=== PATIENT | female | born 1945 | race Caucasian/White ===

== ENCOUNTER 2016-09-29 11:00 | Emergency (ER) | payer MEDICARE, BC, OTHER ==
[~2016-09-29 11:00] MED LIST: CLEOCIN HCL150 M1 PO; CLEOCIN HCL300 M1 PO; CULTURELLE1 EAC1 PO; DENTA 5000 PLUS51 GM DT; INVANZ1000 MG/VI IV; MUCINEX D ER 11 EACH PO; NAPROSYN500 M1 PO; NEXIUM40 M1 PO; NORCO 5-325 TA1 EACH PO; NORCO 7.5-3251 EACH PO; PERCOCET 5-3251 EACH PO; PERIDEX118 ML MM; PLAQUENIL200 M1 PO; PREDNISONE10 M1 PO; TYLENOL325 M2 PO; ULTRAM50 M1 PO; ZOLOFT100 M1 PO; ZOLOFT25 M1 PO; [UNRECOGNIZED DRUG - REMARK]
[2016-09-29] MEDS ORDERED: NORVASC5 M2 PO (11:23)
[2016-09-29] MEDS ORDERED: BACTRIM DS TAB1 EAC2 PO (11:23)
== END 2016-09-29 13:20 ==
LOC: EDMED 11:00
PROC: 2W3DX1Z Immobilization of Left Lower Arm using Splint (ICD-10-PCS; principal; 2016-09-29)
DX: S52.532A Colles' fracture of left radius, initial encounter for closed fracture (principal); Z88.0 Allergy status to penicillin; W01.0XXA Fall on same level from slipping, tripping and stumbling without subsequent striking against object, initial encounter